=== PATIENT | female | born 1940 ===

== ENCOUNTER → 2021-07-09 15:33 | Outpatient (BNVA) | payer OTHER, SELFPAY | PROVIDERS: PCP Internal Medicine; Visit Provider Psychiatry & Neurology Neurology | DX: Z13.89 Encounter for screening for other disorder (principal) ==

== ENCOUNTER 2022-11-03 15:14 | Outpatient (AMB) | payer OTHER, SELFPAY ==
--- NOTE | 2022-11-03 15:29 | A.OFFVIS_ITS ---
Intake Vital Signs 11/03/22 15:30 Height 5 ft 1 in Weight 148 lb 6 oz BMI 28.0 BP 122/70 Blood Pressure Location Rt brachial Position Sitting Pulse 67 Pulse Source Pulse Oximeter Pulse Oximetry (%) 97 Intake Visit Reasons: follow up-LVM Intake Note: Patient presents for follow up Allergies No Known Allergies Allergy (Verified 11/03/22 15:32) Medication List - Last Reconciled 11/03/22 by Olivia Wagoner MD amlodipine 2.5 mg PO DAILY capsaicin 0.025% 1 patch topical BID PRN cholecalciferol (vitamin D3) 50 mcg PO DAILY clobetasol 0.025% 1 appl topical DAILY clopidogrel 75 mg PO DAILY comp.stocking,knee,long,medium As directed diclofenac sodium 1% (Arthritis Pain (diclofenac)) 2 grams topical QID fluticasone propionate 50 mcg/actuation 1 spray intranasal BID lidocaine 5% 1 appl topical BID PRN lorazepam 0.5 mg PO BEDTIME PRN multivitamin (Daily Multi-Vitamin tablet) 1 tab PO DAILY nifedipine ER 30 mg PO DAILY nystatin 400,000 units buccal DAILY vit C,V-Sh-zhxxu-lutein-zeaxan 250-90-40-1 mg (PreserVision AREDS-2) 1 tab PO BID HPI HPI Comments History of Present Illness Details 82y/o female comes for follow up of TIA. she is doing well Her neck pain is better with PT she declined sleep study. she is sleeping better now. she was admitted at [facility] in Mar 2021 for an episode of slurred speech. Her CT , CTA and MRI were negative. she was presumed to have TIA and discharge don aspirin 81mg and clopidogrel 75 mg qd for 1 mth She was supposed to follow up with stroke clinic .she denies any new epsiode of speech slurring, weakness, numbness, double vision or vertigo. No new complaints she walks 10K steps everyday [facility] Medical History (Updated 07/09/21 @ 16:03 by Olivia Wagoner MD) Endometrial carcinoma HTN (hypertension) PUD (peptic ulcer disease) Pulmonary nodules TIA (transient ischemic attack) Surgical History H/O: hysterectomy Social History Alcohol intake: never Patient Tobacco Use Status: Never used Tobacco Physical Exam Vital Signs: Last Vital Signs Pulse 67 11/03/22 15:30 BP 122/70 11/03/22 15:30 Pulse Ox 97 11/03/22 15:30 BMI result Body Mass Index 28.0 Assessment & Plan Assessment & Plan (1) TIA (transient ischemic attack): Code(s): G45.9 - Transient cerebral ischemic attack, unspecified (2) Sleep disorder: Code(s): G47.9 - Sleep disorder, unspecified (3) Snoring: Code(s): R06.83 - Snoring (4) Hypersomnia: Code(s): G47.10 - Hypersomnia, unspecified Plan I will review records from [facility] . she does not want to start aspirin due to her pepticulcer disease Continue plavix 75mg qd Home sleep test to r/o sleep apnea- she declines PT for neck- helped her . Medications: Refilled clopidogrel 75 mg PO DAILY 30 tabs 6RF Coding Level of Care Code Est Pt Level 4 (54869) Diagnoses TIA (transient ischemic attack) G45.9 Sleep disorder G47.9 Snoring R06.83 Hypersomnia G47.10
[2022-11-03 15:30] VITALS: BP 122/70; PULSE 67; O2SAT 97; BMI 28.0
== END 2022-11-03 15:52 | disposition home or self-care (01) ==
PROVIDERS: Visit Provider Psychiatry & Neurology Neurology
DX: G45.9 Transient cerebral ischemic attack, unspecified (principal); G47.9 Sleep disorder, unspecified; R06.83 Snoring; G47.10 Hypersomnia, unspecified
CPT/HCPCS: 99214

== ENCOUNTER → 2022-11-03 15:14 | Outpatient (BNVA) | payer OTHER, SELFPAY | PROVIDERS: Visit Provider Psychiatry & Neurology Neurology ==